=== PATIENT | male | born 1945 | race Caucasian/White ===

== ENCOUNTER 2021-06-22 00:49 | Emergency (ER) | payer MEDICARE, OTHER ==
[~2021-06-22] VITALS: Ht 167.6 cm; Wt 99.8 kg
[2021-06-22] MEDS ORDERED: HYDROCODON-ACE1 EACH PO (02:22)
[2021-06-22] MEDS ORDERED: PREDNISONE20 M1 PO (02:22)
[2021-06-22] MEDS ORDERED: AUGMENTIN 875875 MG PO (02:22)
== END 2021-06-22 02:37 | disposition home or self-care (01) ==
LOC: ED 00:49
DX: M16.12 Unilateral primary osteoarthritis, left hip (principal); M25.552 Pain in left hip; M25.561 Pain in right knee; J32.9 Chronic sinusitis, unspecified

== ENCOUNTER 2021-08-09 10:38 | Emergency (ER) | payer MEDICARE, OTHER ==
[~2021-08-09] VITALS: Wt 99.8 kg
[~2021-08-09 10:38] MED LIST: AUGMENTIN 875875 MG PO; HYDROCODON-ACE1 EACH PO; PREDNISONE20 M1 PO
[2021-08-09] MEDS ORDERED: AUGMENTIN 875875 MG PO (11:52)
[2021-08-09] MEDS ORDERED: PREDNISONE50 MG PO (11:52)
== END 2021-08-09 12:06 | disposition home or self-care (01) ==
LOC: ED 10:38
DX: J32.9 Chronic sinusitis, unspecified (principal); M79.10 Myalgia, unspecified site

== ENCOUNTER → 2022-06-25 | Outpatient (CLI) | payer MEDICARE, OTHER ==
[~2022-06-25] MED LIST changes: +HYDRALAZINE HCL25 MG PO; +KLOR-CON 88 ME1 PO; +LISINOPRIL20 MG PO; +NORCO 5-325 TA1 EACH PO; +PREDNISONE50 MG PO; +TAMSULOSIN HCL0.4 MG PO
== END | disposition home or self-care (01) ==
LOC: RAD 10:07
PROVIDERS: ATTEND Chiropractor
DX: M47.816 Spondylosis without myelopathy or radiculopathy, lumbar region (principal); M43.8X6 Other specified deforming dorsopathies, lumbar region; M25.78 Osteophyte, vertebrae; I70.0 Atherosclerosis of aorta

== ENCOUNTER 2024-06-04 17:00 | Emergency (ER) | payer MEDICARE, OTHER ==
[~2024-06-04] VITALS: Ht 167.6 cm; Wt 100.8 kg
[2024-06-04 19:12] LABS: BASO # 0.1 10*3/uL (0.0-0.1); BASO % 0.4 % (0.0-1.0); EOS # 0.1 10*3/uL (0.0-0.4); EOS % 0.8 % (1.0-4.0); HEMATOCRIT 42.7 % (42.0-52.0); LYMPH # 1.2 10*3/uL (1.3-4.4); LYMPH % 9.6 % (27.0-41.0); MEAN CELL VOLUME 90.7 fl (80.0-94.0); MEAN CORPUSCULAR HGB 30.4 pg (27.0-31.0); MEAN CORPUSCULAR HGB CONC 33.5 g/dl (33.0-37.0); MEAN PLATELET VOLUME 9.3 fl (9.6-12.3); MONO % 7.6 % (3.0-9.0); NEUT # 10.4 10*3/uL (2.3-7.9); NEUT % 81.2 % (47.0-73.0); PLATELET COUNT AUTOMATED 260 10*3/uL (130-400); RED BLOOD COUNT 4.71 10*6/uL (4.50-5.90); RED CELL DISTRI WIDTH 12.8 % (0-14.5); WHITE BLOOD COUNT 12.8 10*3/uL (4.8-10.8)
[2024-06-04 19:30] LABS: BUN 10 mg/dl (9-23); CHLORIDE 102 mmol/L (98-107); CPK 72 U/L (34-171); POTASSIUM 3.5 mmol/L (3.4-5.1)
[2024-06-04] MEDS ORDERED: ACETAMINOPHEN 325 MG TAB PO ONE (21:45)
[2024-06-04 22:10] LABS: BILIRUBIN Negative (Negative); BLOOD Negative (Negative); CLARITY Clear (Clear); COLOR Yellow (Yellow); GLUCOSE Negative (Negative); KETONE Negative (Negative); LEUKO ESTERASE Negative (Negative); NITRITE Negative (Negative); PH 7.5 (4.5-8.0); SPECIFIC GRAVITY <= 1.005 (1.001-1.030); UROBILINOGEN 0.2 E.U./dl (0.0-1.0)
[2024-06-04 22:29] LABS: WBC 0-2 wbc/hpf (0-5)
== END 2024-06-04 23:28 | disposition home or self-care (01) ==
LOC: ED 17:00
PROVIDERS: Physician Assistant Medical
DX: B34.9 Viral infection, unspecified (principal); Z20.822 Contact with and (suspected) exposure to COVID-19; I10 Essential (primary) hypertension

== ENCOUNTER → 2024-06-21 | Outpatient (CLI) | payer MEDICARE, OTHER | END | disposition home or self-care (01) | LOC: RAD 14:11 | PROVIDERS: ATTEND Internal Medicine | DX: I51.7 Cardiomegaly (principal); J18.9 Pneumonia, unspecified organism ==

== ENCOUNTER 2024-10-24 04:46 | Emergency (ER) | payer MEDICARE, OTHER ==
[~2024-10-24] VITALS: Ht 165.1 cm; Wt 90.7 kg
[2024-10-24] MEDS ORDERED: TAMIFLU 75MG CA75 MG PO (07:15)
== END 2024-10-24 07:25 | disposition home or self-care (01) ==
LOC: ED 04:46
DX: J10.1 Influenza due to other identified influenza virus with other respiratory manifestations (principal); M19.90 Unspecified osteoarthritis, unspecified site; Z20.822 Contact with and (suspected) exposure to COVID-19

== ENCOUNTER → 2025-04-14 | Outpatient (CLI) | payer MEDICARE, OTHER ==
[~2025-04-14] MED LIST changes: +TAMIFLU 75MG CA75 MG PO
== END | disposition home or self-care (01) ==
LOC: RAD 11:38
PROVIDERS: ATTEND Registered Nurse
DX: I49.1 Atrial premature depolarization (principal); C61 Malignant neoplasm of prostate; R42 Dizziness and giddiness; I10 Essential (primary) hypertension

== ENCOUNTER 2025-06-01 11:50 | Emergency (ER) | payer MEDICARE, OTHER ==
[~2025-06-01] VITALS: Ht 162.5 cm; Wt 99.8 kg
[2025-06-01 12:27] LABS: BASO # 0.1 10*3/uL (0.0-0.1); BASO % 0.7 % (0.0-1.0); EOS # 0.5 10*3/uL (0.0-0.4); EOS % 5.0 % (1.0-4.0); MEAN CELL VOLUME 89.9 fl (80.0-94.0); MEAN CORPUSCULAR HGB 30.7 pg (27.0-31.0); MEAN PLATELET VOLUME 9.1 fl (9.6-12.3); MONO # 1.0 10*3/uL (0.1-1.0); MONO % 10.0 % (3.0-9.0); NEUT # 7.6 10*3/uL (2.3-7.9); NEUT % 73.2 % (47.0-73.0); NUCLEATED RED BLOOD CELL 0.0 % (0.0-0.0); NUCLEATED RED BLOOD CELL 0.0 10*3/uL (0.0-0.0); PLATELET COUNT AUTOMATED 232 10*3/uL (130-400); RED CELL DISTRI WIDTH 12.8 % (0-14.5)
[2025-06-01 12:48] LABS: BUN 11 mg/dl (9-23)
[2025-06-01] MEDS ORDERED: AVPAK AZITHROM250 M1 PO (13:11)
[2025-06-01] MEDS ORDERED: AZITHROMYCIN 250 MG TAB PO ONE (13:15)
== END 2025-06-01 13:30 | disposition home or self-care (01) ==
LOC: ED 11:50
PROVIDERS: Nurse Practitioner Family
DX: J40 Bronchitis, not specified as acute or chronic (principal); Z20.822 Contact with and (suspected) exposure to COVID-19